=== PATIENT | female | born 1990 | race Caucasian/White ===

== ENCOUNTER → 2018-04-09 | Outpatient (CLI) | payer OTHER ==
[2018-04-09 08:16] LABS: ALBUMIN 3.9 gm/dl (3.1-4.5); CHLORIDE 106 mmol/L (98-107); POTASSIUM 3.8 mmol/L (3.5-5.1); SODIUM 138 mmol/L (136-145)
[2018-04-09 08:21] LABS: ALKALINE PHOSPHATASE 29 U/L (45-117); BUN 12 mg/dl (7-24); SGOT/AST 14 IU/L (3-35); SGPT/ALT 19 U/L (12-78); TOTAL PROTEIN 7.2 gm/dL (6.4-8.2)
== END | disposition home or self-care (01) ==
LOC: LAB 01:36
PROVIDERS: Specialist
DX: E23.0 Hypopituitarism (principal); G43.909 Migraine, unspecified, not intractable, without status migrainosus; R73.03 Prediabetes